=== PATIENT | male | born 1940 | race Caucasian/White ===

== ENCOUNTER → 2019-06-20 | Day surgery (SDC) | payer MEDICARE ==
[2019-06-18 12:16] LABS: BASOPHILS # (AUTO) 0.1 (0.0-0.1); BASOPHILS % 0.7 % (0.0-1.0); EOSINOPHILS # (AUTO) 0.3 (0.0-0.4); EOSINOPHILS % 4.6 % (0.0-6.0); HEMOGLOBIN 13.8 g/dL (14.0-18.0); LYMPHOCYTES % 14.1 % (18.0-39.1); MEAN CORPUSCULAR HEMOGLOBIN 31.7 pg (28-32); MEAN CORPUSCULAR HGB CONC 32.9 g/dL (31-35); MEAN CORPUSCULAR VOLUME 96.6 fL (81-99); MONOCYTES # (AUTO) 1.3 (0.2-0.8); MONOCYTES % 17.5 % (4.4-11.3); NEUTROPHILS # (AUTO) 4.5 (2.1-6.9); NEUTROPHILS % 62.7 % (38.7-80.0); PLATELET COUNT 169 x10e3/uL (140-360); RED BLOOD COUNT 4.35 x10e6/uL (4.3-5.7); RED CELL DISTRIBUTION WIDTH 14.6 % (11.7-14.4)
[2019-06-18 12:41] LABS: ALANINE AMINOTRANSFERASE 62 IU/L (0-55); ALBUMIN 3.5 g/dL (3.5-5.0); ALKALINE PHOSPHATASE 49 IU/L (40-150); ANION GAP 10.4 mmol/L (8-16); BLOOD UREA NITROGEN 17 mg/dL (7-26); BUN/CREATININE RATIO 17 (6-25); CARBON DIOXIDE 29 mmol/L (22-29); CHLORIDE 103 mmol/L (98-107); CREATININE, SERUM 0.98 mg/dL (0.72-1.25); EST GLOMERULAR FILTRATION RATE > 60 ML/MIN (60-); GLUCOSE 73 mg/dL (74-118); POTASSIUM 4.4 mmol/L (3.5-5.1); SODIUM 138 mmol/L (136-145)
[~2019-06-20] VITALS: Ht 185.4 cm; Wt 88.9 kg
[~2019-06-20] MED LIST: ALPRAZOLAM 0.5 MG TAB ONE; DIPHENHYDRAMINE HCL 25 MG CAP ONE; FENTANYL CITRATE/PF 100MCG/2 ML INJ ONE; HEPARIN SOD/SOD CHLORIDE 2,000 ML ONE; LIDOCAINE HCL 2% LOCAL 20 ML VIAL ONE; LOSARTAN POTASS25 MG PO; METOPROLOL SUCC50 MG PO; MIDAZOLAM HCL 2 MG/2 ML VIAL ONE; PRESERVISION A1 EACH PO; SODIUM CHLORIDE 0.9% 1000ML 1,000 ML ONE; TERBINAFINE HC250 MG PO; VERAPAMIL HCL 2.5 MG/ML 2 ML VIAL ONE; XYZAL5 MG PO; Z.0.LEVAQUIN500 MG; Z.0.NEXIUM40 MG
--- OUTSIDE RECORDS SUMMARY | 2019-06-20 11:09 | XMS REPORT | Continuity of Care Document ---
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 Active 06/22/2016 [facility] R13.12=DYSPHAGIA, OROPHARYNGEAL PHASE Active 05/24/2016 [facility] DX: R13.12=DYSPHAGIA, OROPHARYNGEAL PHAS Active 05/24/2016 [facility] R43.9 UNSPECIFIED DISTURBANCES OF SMELL Active 05/12/2016 [facility] J31.0 - CHRONIC RHINITIS Active 03/10/2016 [facility] 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 AND Active 11/11/2015 [facility] 427.60 427.61 427.69 785.1 786.50 Active 01/30/2015 [facility] DYSPHAGIA Active 03/19/2013 [facility] 516.3 Active 12/24/2012 [facility] IDIOPATH PULMON FIBROSIS Active [facility] ASPIRATE Active [facility] [place] DYSPHAGIA NOS Active [facility] PREMATURE BEATS NOS Active [facility] PALPITATIONS Active [facility] UNSPECIFIED DISTURBANCES OF SMELL AND TA Active [facility] CHRONIC RHINITIS Active [facility] DYSPHAGIA, OROPHARYNGEAL PHASE Active [facility] COUGH Active [facility] PULMONARY FIBROSIS, UNSPECIFIED Active [facility] OTHER SPECIFIED CONGENITAL DEFORMITIES Active [facility] Medications Medication Details Route Status Patient Instructions Ordering Provider Order Date Source Provocholine 100 mg, Route: INHALATION, Drug form: AERO, ONCE, Start date: 09/04/16 11:24:00 COMPENSATION SUPERVISOR, Stop date: 09/04/16 11:24:00 CSTNotes: (Same as: Provocholine) MEDICATION WASTE Product Size: 100 mg P roduct Wasted: 0___ mg Inactive 09/04/2016 [facility] Allergies, Adverse Reactions, Alerts No Known Medication Allergies Immunizations No Data Provided for This Section Results Order Name Results Value Reference Range Date Interpretation Comments Source CHEM PANEL eGFR 84 05/26/2016 Result Comment: The eGFR is calculated using the CKD-EPI formula. In most young, healthy individuals the eGFR will be >90 mL/min/1.73m2. The eGFR declines with age. An eGFR of 60-89 may be normal in some populations, particularly the elderly, for whom the CKD-EPI formula has not been extensively validated. Use of the eGFR is not recommended in the following populations:

Individuals with unstable creatinine concentrations, including patients and those with serious co-morbid conditions.

Patients with extremes in muscle mass or diet.

The data above are obtained from the National Kidney Disease Education Program (NKDEP) which additionally recommends that when the eGFR is used in patients with extremes of body mass index for purposes of drug dosing, the eGFR should be multiplied by the estimated BMI. [facility] CHEM PANEL POC Creatinine 0.9 0.5 - 1.4 05/26/2016 [facility] Pathology Reports No Data Provided for This Section Diagnostic Reports Report Value Date Source Sinus paranasal series DX Study: Sinus series, 4 views Clinical Indication: - R05 Cough, J84.10 Pulmonary fibrosis, unspecified, J01.91 Acute recurrent sinusitis, unspecified Comparison: None FINDINGS: Multiple views of the sinuses show moderate-severe mucosal thickening of the left maxillary sinus. The right maxillary, frontal, ethmoid, and sphenoid sinuses are otherwise well-developed and well aerated and without air-fluid level. Bony orbits are intact. IMPRESSION: Chronic appearing moderate-severe left maxillary sinus disease. SL: [id number] 02/01/2018 [facility] Chest 2 views DX Study: Chest 2 views DX Clinical Indication: - R05 Cough, J84.10 Pulmonary fibrosis, unspecified, J01.91 Acute recurrent sinusitis, unspecified Comparison: Chest x-ray from 04/10/2006 FINDINGS: Cardiac silhouette is normal in size. Mild left basilar scarring is seen. Scattered chronic interstitial markings throughout the right lung are present and stable. No pleural effusion or pneumothorax is seen. The osseous structures are unremarkable. IMPRESSION: No acute cardiopulmonary disease. SL: [id number] 02/01/2018 [facility] wo contrast CT Noncontrast high-resolution chest CT, 09/04/2016 at 1334 hours INDICATION: Shortness of breath TECHNIQUE: Volumetric CT acquisition of the chest was obtained without contrast with the patient initially in supine positioning. This was followed by high resolution imaging through the chest with patient in prone positioning and 1 mm thin slices obtained every centimeter according to high-resolution technique. Sagittal, coronal and axial MIP reformatted images were reconstructed and obtained at the workstation. COMPARISON: Comparison is made to the prior chest CT dated 02/18/2015. FINDINGS: The cardiothoracic ratio is 14.8/28.5 cm. There is calcified atherosclerotic plaque in the thoracic aorta and branching aortic arch vessels. Again seen is abundant calcification within the innominate artery, for example on axial image 38. Calcifications are identified in the left anterior descending and right coronary arteries. The ascending aorta is ectatic measuring 37 mm, not significantly changed. The pulmonary trunk is 33 mm, the right pulmonary artery 27 mm and the left pulmonary artery 28 mm. No pericardial effusion is present. An 11 mm precarinal lymph node is stable. Additional subcentimeter mediastinal lymph nodes are noted. Again seen is peripheral honeycombing, reticulation and traction bronchiectasis scattered throughout all lobes of both lungs but with a lower lobe predilection. These findings have not significantly changed since February 18. No significant groundglass opacities are identified. Again seen are scattered calcified pleural plaques, predominantly at the left base. No pleural effusions are present. Anteriorly flowing osteophytes are seen throughout the thoracic spine creating a fused appearance. There is also bony fusion of the posterior elements. There are advanced degenerative changes of the right shoulder. IMPRESSION: 1. Stable UIP-pattern of pulmonary fibrosis, not significantly changed since February 18. 2. Scattered pleural calcifications on the left, similar to prior imaging. 3. Dilated central pulmonary arteries concerning for pulmonary artery hypertension. 4. Aortic, coronary artery and vascular calcifications. There is prominent calcification within the innominate artery. 09/04/2016 [facility] Esophagus BA swallow function video DX Patient Name: ROBINSON GARCIA : 1940; Age: 75 years Male MR: [id number] Study: Esophagus BA swallow function video DX Order Time: 06/06/2016 11:00 AM CDT Clinical Indication: R13.12 Dysphagia, oropharyngeal phase. COMPARISON: None. FLUOROSCOPY TIME: 0.8 minutes. TECHNIQUE: Fluoroscopic assistance was provided for the speech pathologist for modified barium swallow examination. Varying consistencies of barium were administered po. FINDINGS: Thin consistency barium: No aspiration or any significant laryngeal penetration. [place] consistency barium: No aspiration or any significant laryngeal penetration. Pudding coated barium: No aspiration or any significant laryngeal penetration. Barium with cracker preparation: No aspiration or any significant laryngeal penetration. Note is made of a ventral esophageal diverticulum inferior to the piriform sinus with slight with intention of ingested material. IMPRESSION: 1. No evidence for aspiration, penetration or nasopharyngeal regurgitation. 2. 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 A gastroenterology consult is advised. SL: [id number] 06/06/2016 [facility] Barium Swallow w Esophagus Function DX Barium Swallow w Esophagus Function DX CLINICAL HISTORY: R13.12 Dysphagia, oropharyngeal phase R05 Cough. COMPARISON: 03/25/2013 TECHNIQUE: Thin barium was utilized for recumbent prone oblique and LPO images. Thick barium was utilized for upright imaging of the esophagus and pharynx. Granola bar mixed with barium was given to evaluate motility with solids. FINDINGS: There is no delay in passage of the barium bolus from the pharynx into the esophagus. The cricopharyngeus relaxes normally. There is no evidence for cricopharyngeal bar or Zenker's diverticulum. Prone and LPO images of the esophagus reveal moderate delay in passage of barium from the esophagus to the stomach. Numerous tertiary contractions are visualized. Upright images with thick barium reveals no significant dysmotility. No mass lesions or strictures are visualized. Mild to moderate gastroesophageal reflux. Subsequently 2 separate swallows of a small piece of granola bar and barium were fluoroscopically followed through the length of the esophagus. There is no significant delay in passage of both solid boluses from the pharynx to the esophagus and subsequently into the stomach. Overhead image performed at the conclusion of the procedure reveals prompt passage of the barium from the stomach into the small bowel. IMPRESSION: Mild to moderate nonspecific esophageal dysmotility is noted on the recumbent images. No significant delay in clearance of liquid barium or solids on upright images. [id number] gastroesophageal reflux. No hiatal hernia is visualized. Fluoroscopy Time: 2.5 minutes SL: [id number] 05/31/2016 [facility] Brain w/wo contrast MRI Brain w/wo contrast MRI CLINICAL INDICATION: R43.9 Unspecified disturbances of smell and taste; COMPARISON: None TECHNIQUE: Multiplanar imaging of the brain was performed without and with administration of IV contrast. FINDINGS: SUPRATENTORIAL BRAIN: The brain parenchyma demonstrates normal signal with appropriate giraldo-white matter differentiation. No areas of restricted diffusion are visualized to suggest an acute infarct. Mild cerebral atrophy. A few nonspecific foci of increased T2 signal without restricted diffusion are noted in the deep cerebral white matter. There is no space-occupying lesion, mass effect or midline shift. No extra-axial fluid collection or intraparenchymal hemorrhage. No evidence for an enhancing mass or other areas of abnormal enhancement are visualized. BRAINSTEM AND CEREBELLUM: Cerebellar volume is within normal limits. No CP angle mass is visualized. IACs demonstrate normal morphology on the pre and postcontrast scans. The brainstem and craniocervical junction are unremarkable. VISUALIZED VESSELS: The expected intracranial flow voids are present. SELLA, SKULL BASE AND ORBITS: The visualized orbits and optic chiasm are unremarkable. Pituitary gland demonstrates normal morphology. PARANASAL SINUSES AND MASTOIDS: The visualized paranasal sinuses are clear. The mastoid air cells are clear. IMPRESSION: A few nonspecific foci of increased T2 signal in the deep cerebral white matter may reflect chronic ischemic change from small vessel disease. Mild cerebral atrophy. No other significant abnormality is noted on pre and postcontrast MRI of brain. SL: [id number] 05/26/2016 [facility] Bone Density DXA [employer] MA - Bone Density DXA [employer] CT MALE BONE DENSITY EVALUATION: 11/16/2015 RISK FACTORS: race. FINDINGS: Bone density evaluation was performed 11/16/2015 on the AP L1-L4 region of spine using a Hologic unit. The BMD average for the exam is 1.257 g/cm2. The T-score is 1.50 and the Z-score is 2.50. This matches the World Health Organization's criteria for normal bone density and places the patient within normal limits of fracture risk. An additional bone density evaluation was performed 11/16/2015 on the right femur neck using a Hologic unit. The BMD average for the exam is 0.800 g/cm2. The T-score is -1.00 and the Z-score is 0.40. This matches the World Health Organization's criteria for normal bone density and places the patient within normal limits of fracture risk. An additional bone density evaluation was performed 11/16/2015 on the right hip using a Hologic unit. The BMD average for the exam is 1.030 g/cm2. The Z-score is 0.80. Complete risk assessment of this region was not determined. An additional bone density evaluation was performed 11/16/2015 on the left femur neck using a Hologic unit. The BMD average for the exam is 0.770 g/cm2. The T- score is -1.20 and the Z-score is 0.10. This matches the World Health Organization's criteria for osteopenia and places the patient at a medium risk for fracture. An additional bone density evaluation was performed 11/16/2015 on the left hip using a Hologic unit. The BMD average for the exam is 0.999 g/cm2. The T-score is -0.20 and the Z-score is 0.60. This matches the World Health Organization's criteria for normal bone density and places the patient within normal limits of fracture risk. IMPRESSION: OSTEOPENIA Patient is at medium risk for fracture. This exam was dictated and interpreted by [id number] for ERLIN Glass. Alvin Zhu M.D., cm/yg:11/17/2015 14:19:46 Internal Controls Specialist: Jazz Adler [facility] 11/16/2015 [facility] Chest wo contrast CT Noncontrast high-resolution chest CT, February 18, 2015. HISTORY: 74-year-old man with idiopathic pulmonary fibrosis and shortness of breath. TECHNIQUE: The chest was initially scanned with the patient in supine positioning at 1.25 mm thin slices without the aid of intravenous contrast, with sagittal and coronal reformatted provided. High-resolution images were then obtained through the chest with the patient in prone positioning, with thin 1 mm slices obtained every centimeter, accompanied by targeted and magnified windows through each lung. Comparison is made to the prior chest CT dated January 13, 2013. FINDINGS: The cardiothoracic ratio measures 13.8/28.5 cm. No pericardial effusion is present. The aortic root is ectatic measuring 38 mm. The ascending aorta is 37 mm. The pulmonary trunk measures 29 mm, the right pulmonary artery 29 mm, and the left pulmonary artery 28 mm. Calcifications are identified in the left main and LAD coronary arteries and scattered in the thoracic aorta and branching aortic arch vessels. Again seen is abundant focal calcification within the innominate artery, for example on axial image 43. A precarinal lymph node measures 11 mm, stable. Additional subcentimeter lymph nodes are scattered throughout the mediastinum. Again seen is subpleural reticulation, peripheral honeycombing, and traction bronchiectasis with a peripheral and lower lobe predilection involving all lobes of both lungs. There are mild associated groundglass opacities in a similar distribution in the lower lungs. These findings have not significantly progressed since December 2012 but have gradually increased when compared to a more remote study from December 2003. No pleural effusions are present. Again seen are calcified pleural plaques on the left predominately in the basilar location. Anteriorly flowing osteophytes are seen throughout the thoracic spine creating a fused appearance. There is also bony fusion of the posterior elements. There are advanced degenerative changes of the right shoulder. IMPRESSION: 1. Stable pulmonary fibrosis with a peripheral and lower lung predilection, not significantly changed since December 2012. It has gradually progressed when compared to a more remote study dated December 2003. 2. Stable pleural calcifications on the left. 3. Prominent central pulmonary arteries concerning for elevated right heart pressures. 4. Aortic, coronary artery and vascular calcifications. There is prominent calcification within the innominate artery. 02/18/2015 [facility] Esophagus barium swallow function video (Rad) EXAM: Modified barium swallow. HISTORY: Dysphagia, laryngospasm. Feeding difficulties, aspiration risk TECHNIQUE: The patient ingested different consistencies of liquids and solids while being videotaped. Exam performed in conjunction with speech pathologist. Fluoroscopy time 1.1 minutes. FINDINGS: The patient tolerated nectar, thin liquid, pudding and diamante cracker without laryngeal penetration or aspiration seen. Anterior marginal osteophytes at C6-C7 have mass effect on the posterior wall of the esophagus with ingested material transiently sticking at this level which clears with subsequent swallowing. Refer to complete report by speech pathologist. SL:13 03/25/2013 [facility] Esophagus barium swallow Esophagram. INDICATION: Cough. TECHNIQUE: Multiple spot fluoroscopic images of the esophagus after the oral administration of barium and air. Fluoroscopic time of 32 seconds. FINDINGS: No evidence of esophageal obstruction or narrowing. There was a primary peristaltic stripping wave, but it was incomplete. Multiple tertiary contractions were identified. Normal location of the gastroesophageal junction. A small amount of gastroesophageal reflux was noted. After the initial few swallows, patient began coughing, and aspiration was noted. IMPRESSION: Positive for aspiration. Consider speech therapy evaluation. Multiple esophageal tertiary contractions and incomplete primary peristaltic stripping wave suggesting esophageal dysmotility, such as presbyesophagus. Small gastroesophageal reflux. 02/06/2013 [facility] Consultation Notes No Data Provided for This Section Discharge Summaries No Data Provided for This Section History and Physicals No Data Provided for This Section Vital Signs Vital Sign Value Date Comments Source Height 182.88 cm 09/04/2016 [facility] BMI Calculated 27.18 09/04/2016 [facility] Weight 90.909 09/04/2016 [facility] Weight 88.182 06/27/2016 [facility] BMI Calculated 25.65 06/27/2016 [facility] Height 185.42 cm 06/27/2016 [facility] Respitory Rate 16 05/26/2016 [facility] Systolic (mm Hg) 137 05/26/2016 [facility] Diastolic (mm Hg) 70 05/26/2016 [facility] Respitory Rate 24 05/26/2016 [facility] Systolic (mm Hg) 137 05/26/2016 [facility] Diastolic (mm Hg) 70 05/26/2016 [facility] Respitory Rate 11 05/26/2016 [facility] Systolic (mm Hg) 121 05/26/2016 [facility] Diastolic (mm Hg) 77 05/26/2016 [facility] Height 185.42 cm 01/06/2013 [facility] Weight 96.364 01/06/2013 [facility] Encounters Location Location Details Encounter Type Encounter Number Reason For Visit Attending Provider ADM Date DC Date Status Source [facility] Outpatient [id number] 516.3 FATIMAH MCDOWELL 01/06/2013 Active [facility] Outpatient [id number] DYSPHAGIA ELVIRA GONZALEZ 03/25/2013 Active [facility] Outpatient [id number] George Carroll 02/03/2015 02/04/2015 [facility] [place] [facility] [id number] Samson Arce 02/18/2015 02/19/2015 [facility] [place] [facility] [place] [facility] [id number] Sanchez An 11/16/2015 11/17/2015 [facility] [place] [facility] Outpatient [id number] Isabella Rocky 05/26/2016 05/27/2016 [facility] Outpatient [id number] Isabella Rocky 05/31/2016 06/01/2016 [facility] Outpatient [id number] Isabella Rocky 06/06/2016 06/07/2016 [facility] Outpatient [id number] George Carroll 06/27/2016 06/28/2016 [facility] Outpatient [id number] Samson Claude 09/04/2016 09/05/2016 [facility] Outpatient [id number] George Carroll 09/05/2017 09/06/2017 [facility] Outpatient [id number] Isabella Rocky 02/01/2018 02/02/2018 [facility] [id number] ASPIRATE ELVIRA GONZALEZ Active [facility] [place] Procedures No Data Provided for This Section Assessment and Plan No Data Provided for This Section Plan of Care No Data Provided for This Section Social History Social History Date Source No data available for this section 02/02/2018 [facility] No data available for this section 09/06/2017 [facility] No data available for this section 11/17/2015 [facility] [place] [facility] No data available for this section 02/19/2015 [facility] [place] Family History No Data Provided for This Section Advance Directives No Data Provided for This Section Functional Status No Data Provided for This Section
--- OUTSIDE RECORDS SUMMARY | 2019-06-20 11:10 | XMS REPORT | Summary of Care ---
Author Author [facility] Organization [facility] Address Unknown Phone Unavailable Encounter HQ Encntr_naifterrence(FIN) [id number] Date(s): 09/05/17 - 09/05/17 [facility] [address] [place] [address] Discharge Disposition: Home or Self Care Attending Physician: George Carroll MD Referring Physician: George Carroll MD Vital Signs No data available for this section Problem List No data available for this section Allergies, Adverse Reactions, Alerts Substance Reaction Severity Status NKDA Active Medications No data available for this section Results No data available for this section Immunizations No data available for this section Procedures No data available for this section Social History No data available for this section Assessment and Plan No data available for this section
--- OUTSIDE RECORDS SUMMARY | 2019-06-20 11:10 | XMS REPORT | Summary of Care ---
Author Author [facility] Organization [facility] Address Unknown Phone Unavailable Encounter NEERU Aaron(ARMIN) [id number] Date(s): 09/04/16 - 09/04/16 [facility] [address] [place] [address] [phone] Discharge Disposition: Home or Self Care Attending Physician: Samson Arce MD Referring Physician: Samson Arce MD Vital Signs Most recent to 1 oldest [Reference Range]: Height 182.88 cm (09/04/16 11:12 AM) Weight 90.909 kg (09/04/16 11:12 AM) Body Mass Index 27.18 m2 (09/04/16 11:12 AM) Problem List No data available for this section Allergies, Adverse Reactions, Alerts Substance Reaction Severity Status NKDA Active Medications Provocholine 100 mg, Route: INHALATION, Drug form: AERO, ONCE, Start date: 09/04/16 11:24:00 GAS PLUMBING INSPECTOR, Stop date: 09/04/16 11:24:00 GAS PLUMBING INSPECTOR Notes: (Same as: Provocholine) MEDICATION WASTE Product Size: 100 mgPro duct Wasted: 0___ mg Start Date: 09/04/16 Stop Date: 09/04/16 Status: Ordered Results No data available for this section Immunizations No data available for this section Procedures No data available for this section Social History No data available for this section Assessment and Plan No data available for this section
--- OUTSIDE RECORDS SUMMARY | 2019-06-20 11:10 | XMS REPORT | Summary of Care ---
Author Author [facility] Organization [facility] Address Unknown Phone Unavailable Encounter HQ Encntr_alias(FIN) [id number] Date(s): 02/01/18 - 02/01/18 [facility] [address] [place] [address]- Discharge Disposition: Home or Self Care Attending Physician: Isabella Hidalgo MD Vital Signs No data available for [...]
--- OUTSIDE RECORDS SUMMARY | 2019-06-20 11:10 | XMS REPORT | CCD ---
Author Author Auto Generated Organization [facility] Outpatient Imaging - [place] Address Unknown Phone Unavailable Care Team Providers Care Dining Room Server Name Role Phone Francisco Ramey CP Allergies, Adverse Reactions, Alerts Substance Reaction Status NKDA Active
--- OUTSIDE RECORDS SUMMARY | 2019-06-20 11:10 | XMS REPORT ---
Author Author [facility] Address Unknown Phone Unavailable Care Team Providers Care Humidifier Operator Name Role Phone Unavailable Unavailable Payers Payer Name Policy Type Policy Number Effective Date Expiration Date Problems This patient has no known problems. Allergies, Adverse Reactions, Alerts Allergy Name Allergy Type Status Severity Reaction(s) Onset Date Inactive Date Treating Clinician Comments No Known Allergies DA Active U 2018-05-06 00:00:00 Medications This patient has no known medications.
--- OUTSIDE RECORDS SUMMARY | 2019-06-20 11:10 | XMS REPORT | Summary of Care ---
Author Author [facility] Organization [facility] Address Unknown Phone Unavailable Encounter HQ Encntr_alias(FIN) [id number] Date(s): 05/31/16 - 05/31/16 [facility] [address] [place] [address]- Discharge Disposition: Home or Self Care Attending Physician: Isabella Hidalgo MD Referring Physician: Isabella Hidalgo MD Vital Signs No [...]
--- OUTSIDE RECORDS SUMMARY | 2019-06-20 11:10 | XMS REPORT | CCD ---
Author Author Auto Generated Organization [facility] Address Unknown Phone Unavailable Care Team Providers Care Seo Strategist Name Role Phone Karen Callahan RP Allergies, Adverse Reactions, Alerts Substance Reaction Status NKDA Active Vital Signs Most recent to oldest [Reference Range]: 1 Height 185.42 cm (01/06/2013 09:00:00) Weight 96.364 kg (01/06/2013 09:00:00)
--- OUTSIDE RECORDS SUMMARY | 2019-06-20 11:10 | XMS REPORT | CCD ---
Author Author Auto Generated Organization [facility] Outpatient Imaging [place] Address Unknown Phone Unavailable Care Team Providers Care Cupboard Builder Name Role Phone Karen Callahan CP Allergies, Adverse Reactions, Alerts Substance Reaction Status NKDA Active
--- OUTSIDE RECORDS SUMMARY | 2019-06-20 11:10 | XMS REPORT | Summary of Care ---
Author Author [facility] Organization [facility] Address Unknown Phone Unavailable Encounter HQ Encntr_alias(FIN) [id number] Date(s): 06/06/16 - 06/06/16 [facility] [address] [place] [address]- [phone] Discharge Disposition: Home or Self Care Attending [...]
--- OUTSIDE RECORDS SUMMARY | 2019-06-20 11:10 | XMS REPORT | Summary of Care ---
Author Author [facility] Organization [facility] Address Unknown Phone Unavailable Encounter HQ [place](ARMIN) [id number] Date(s): 06/27/16 - 06/27/16 [facility] [address] [place] [address]- Discharge Disposition: Home or Self Care Attending Physician: George Carroll MD Referring Physician: George Carroll MD Vital Signs Most recent to 1 oldest [Reference Range]: Height 185.42 cm (06/27/16 1:18 PM) Weight 88.182 kg (06/27/16 1:18 PM) Body Mass Index 25.65 m2 (06/27/16 1:18 PM) Problem List No data available for this [...]
--- OUTSIDE RECORDS SUMMARY | 2019-06-20 11:10 | XMS REPORT | Summary of Care ---
Author Organization Unknown Address Unknown Phone Unavailable Encounter HQ Encntr_alias(ARMIN) [id number] Date(s): 02/18/15 - 02/18/15 [facility] Outpatient Imaging [address] [phone] Discharge Disposition: Home Physician Attending: Samson Arce MD Vital Signs No data available for [...]
--- OUTSIDE RECORDS SUMMARY | 2019-06-20 11:10 | XMS REPORT | Summary of Care ---
Author Author [facility] [place] Organization [facility] [place] Address Unknown Phone Unavailable Encounter HQ Encntr_aliterrence(FIN) [id number] Date(s): 11/16/15 - 11/16/15 [facility] Outpatient [facility] [place] [address] [place], [place] [address] [phone] Discharge Disposition: Home Attending Physician: Sanchez An MD Vital Signs No data available for [...]
--- OUTSIDE RECORDS SUMMARY | 2019-06-20 11:10 | XMS REPORT | Summary of Care ---
Author Organization Unknown Address Unknown Phone Unavailable Encounter HQ Encntr_aliterrence(ARMIN) [id number] Date(s): 02/03/15 - 02/03/[address] Discharge Disposition: Home Physician Attending: George Carroll MD Physician_Referring: George Carroll MD Vital Signs No data [...]
--- OUTSIDE RECORDS SUMMARY | 2019-06-20 11:10 | XMS REPORT | Summary of Care ---
Author Author [facility] Organization [facility] Address Unknown Phone Unavailable Encounter NEERU Aaron(ARMIN) [id number] Date(s): 05/26/16 - 05/26/16 [facility] [address] [place] [address]- Discharge Disposition: Home or Self Care Attending Physician: Isabella Hidalgo MD Referring Physician: Isabella Hidalgo MD Vital Signs 1 2 3 Most recent to oldest [Reference Range]: 137/70 mmHg (05/26/16 2:45 PM) 137/70 mmHg (05/26/16 2:30 PM) 121/77 mmHg (05/26/16 2:22 PM) Blood Pressure [90-140/60-90 mmHg] 16 BRMIN (05/26/16 2:45 PM) 24 BRMIN *HI* (05/26/16 2:30 PM) 11 BRMIN *LOW* (05/26/16 2:22 PM) Respiratory Rate [14-20 BRMIN] Problem List No data available for this section Allergies, Adverse Reactions, Alerts Substance Reaction Severity Status NKDA Active Medications No data available for this section Results CHEM PANEL Most recent to 1 oldest [Reference Range]: eGFR 84 mL/min/1.73m2 1 *NA* (05/26/16 1:05 PM) POC Creatinine 0.9 mg/dL [0.5-1.4 mg/dL] (05/26/16 1:05 PM) 1Result Comment: The eGFR is calculated using the [...] from the National Kidney Disease Education Program ( NKDEP) which additionally recommends that when the eGFR is used in patients with extremes of body mass index for purposes of drug dosing, the eGFR should be mul tiplied by the estimated BMI. Immunizations No data available for this section Procedures No data available for this section Social History No data available for this section Assessment and Plan No data available for this section
[2019-06-20 16:35] VITALS: BP 141/67
--- NOTE | 2019-06-20 16:35 | NUR ---
5096 Bedside report received from Samson DOMINIQUE. Alert oriented and appropriate, PERRLA, respirations even and unlabored to room air. Pulses x4 extremities equal and strong. Pedal pulses PT/DP x4 Cap fill brisk < 3 sec. Rt Perclose dressing dry and intact ok stay flat 5pm and dc home. Skin warm and dry integrity appears D/.I. IV 20g to left hand, presents healthy w/o s/s of infiltration or complaint. Abdomen soft and supple. pt offered toileting, denies need to urinate or defecate. No personal affects with patient. Family Sharri at bedside. Pt and family verbalizes understanding of POC. Currently w/o complaint of pain or need. ds/rn
[2019-06-20 16:45] VITALS: BP 150/69
[2019-06-20 17:00] VITALS: BP 168/74
--- NOTE | 2019-06-20 17:00 | NUR ---
1700t meets DC criteria. Rt groin perclose site assessed for s/s of complication and presence of hematoma. Skin warm, dry, no discolor, and pulses present. IV removed from left hand. Distal tip appears intact. VS WNL. Pt denies pain, sob, or need at this time. Family at at bedside. Review of discharge paperwork and follow up instructions. verbalized understanding. Pt to wheelchair and transported to front of hospital. Transferred to private vehicle under own strength w/o incident with DC paperwork in hand. - ds/rn
--- NOTE | 2019-06-21 16:49 | Operative Report ---
DATE OF PROCEDURE: 06/20/2019 SURGEON: Marin Aburto MD INDICATIONS: Coronary artery disease, angina with abnormal stress test. PROCEDURES PERFORMED: 1. Left heart catheterization, selective coronary angiography. 2. Deployment of right wrist Perclose closure device. COMPLICATIONS: None. RECOMMENDATIONS: Medical therapy. DESCRIPTION OF PROCEDURE: Access was attempted in the right radial artery. Severe spasm and tortuosity noted. Access obtained in the right femoral artery. A 6-American sheath was placed. Coronary angiography demonstrated mild coronary artery disease, 10% to 20% luminal stenosis. No critical stenosis or occlusions were noted. Right groin Perclose deployed. The patient discharged home same day. Marin Aburto MD KSB/MODL /[id number]
== END | disposition home or self-care (01) ==
LOC: CATH LAB 11:00
PROVIDERS: ATTEND Internal Medicine Interventional Cardiology
DX: I25.118 Atherosclerotic heart disease of native coronary artery with other forms of angina pectoris (principal); R94.39 Abnormal result of other cardiovascular function study; Z01.812 Encounter for preprocedural laboratory examination; Z82.49 Family history of ischemic heart disease and other diseases of the circulatory system
CPT/HCPCS: 36415; 80053; 85025; 93454; C1725; C1769; J2001; J2250; J3010; J7030